=== PATIENT | female | born 1980 | race Caucasian/White ===

== ENCOUNTER 2017-07-06 23:37 | Emergency (ER) | payer OTHER ==
[~2017-07-06] VITALS: Ht 165.1 cm; Wt 72.6 kg
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
--- NOTE | 2017-07-06 23:51 | NUR ---
seizure precautions in place.
[2017-07-06] MEDS ORDERED: ONDANSETRON 4 MG TAB.RAPDIS ONE (23:53)
[2017-07-07] MEDS ORDERED: ONDANSETRON 4 MG TAB.RAPDIS SL ONE
--- NOTE | 2017-07-07 | NUR ---
Patient is resting comfortably in bed with eyes closed. Easily arousable to name. VSS. No discomfort noted in pt.
--- NOTE | 2017-07-07 00:12 | NUR ---
PT TO CT
--- NOTE | 2017-07-07 00:22 | NUR ---
PT BACK FROM CT
[2017-07-07] MEDS ORDERED: ONDANSETRON HCL/PF 4 MG/2 ML VIAL ONE (00:58)
[2017-07-07] MEDS ORDERED: CT SWABBABLE VALVE TRANS SET 1 EA INFUS.SET MC ONE (00:59)
[2017-07-07] MEDS ORDERED: IOHEXOL-350 100 ML VIAL IV ONE ×2 (00:59→01:26)
[2017-07-07] MEDS ORDERED: IV NS 0.9% 250 ML IV ONE (00:59)
[2017-07-07] MEDS ORDERED: ONDANSETRON HCL/PF 4 MG/2 ML VIAL IV ONE (01:00)
[2017-07-07] MEDS ORDERED: TDAP [DIPH/PERTUSSIS/TET] 0.5 ML VIAL IM ONE ×2 (01:00→02:11)
--- NOTE | 2017-07-07 01:12 | NUR ---
PT TO CT FOR CTA
--- NOTE | 2017-07-07 01:13 | NUR ---
Patient is resting comfortably in bed with eyes closed. Easily arousable to name. VSS. No discomfort noted in pt. Seizure precautions in place.
[2017-07-07 01:27] LABS: BASOPHILS % (AUTO) 0.2 % (0.0-2.0); EOSINOPHILS % (AUTO) 0.8 % (0.0-6.0); HEMATOCRIT 39 % (33-45); HEMOGLOBIN 13.2 g/dL (11.5-14.8); LYMPHOCYTES # (AUTO) 2.2 /CMM (0.8-4.8); LYMPHOCYTES % (AUTO) 11.9 % (20.0-44.0); MEAN CORPUSCULAR HGB CONC 34 g/dl (31.0-36.0); MEAN CORPUSCULAR VOLUME 91 fL (82-100); MONOCYTES # (AUTO) 0.8 /CMM (0.1-1.30); MONOCYTES % (AUTO) 4.4 % (2.0-12.0); NEUTROPHILS # (AUTO) 15.3 /CMM (1.8-8.9); NEUTROPHILS % (AUTO) 82.7 % (43.0-81.0); PLATELET COUNT (AUTO) 313 /CMM (150-450); RDW COEFFICIENT OF VARIATION 13.4 (11.5-15.0); RED BLOOD CELL COUNT(AUTO) 4.27 MIL/uL (4.0-5.2); WHITE BLOOD COUNT (AUTO) 18.5 K/uL (4.3-11.0)
[2017-07-07] MEDS ORDERED: IV NS 0.9% 1,000 ML BAG IV ONE (01:30)
[2017-07-07 01:34] LABS: INR 0.94 (0.87-1.13)
--- NOTE | 2017-07-07 01:37 | NUR ---
DR NOGUEIRA SPEAKING WITH DR ROMO FROM [facility]. AWAITING CALL BACK FROM [facility].
[2017-07-07 01:38] LABS: CREATININE 0.7 mg/dL (0.6-1.3); POTASSIUM 3.9 mmol/L (3.5-5.1)
[2017-07-07 01:41] VITALS: BP 108/70
[2017-07-07 01:44] LABS: ALBUMIN 4.1 g/dL (3.4-5.0); BILIRUBIN,DIRECT 0.1 mg/dL (0.0-0.2); BILIRUBIN,TOTAL 0.3 mg/dL (0.2-1.0); TOTAL PROTEIN, SERUM 7.8 g/dL (6.4-8.2)
--- NOTE | 2017-07-07 02:15 | NUR ---
REPORT GIVEN TO INVENTORY [employer]ANNER CREW FOR [facility]. PT BEING TRANSFERRED TO [facility] FOR HIGHER LEVEL OF CARE.
--- NOTE | 2017-07-07 02:20 | NUR ---
LATE ENTRY; PT TRANSFERED TO [facility] VIA [facility]ICS WITH IV FLUID NORMAL SALINE INFUSING ACCOMPANIED BY RN FERMIN NOLAN.
== END 2017-07-07 02:20 | disposition short-term general hospital (02) ==
LOC: ER 23:39 → EDBD 23:39 → ER 07-07 02:20
DX: S06.5X9A Traumatic subdural hemorrhage with loss of consciousness of unspecified duration, initial encounter (principal); S02.119A Unspecified fracture of occiput, initial encounter for closed fracture; S02.19XA Other fracture of base of skull, initial encounter for closed fracture; G93.89 Other specified disorders of brain; Z88.0 Allergy status to penicillin; V43.62XA Car passenger injured in collision with other type car in traffic accident, initial encounter; Y93.89 Activity, other specified; Y92.89 Other specified places as the place of occurrence of the external cause; Y99.8 Other external cause status
CPT/HCPCS: 36415; 70450; 70486; 70496; 70498; 71275; 72125; 80048; 80076; 85025; 85730; 86850; 90471; 90715; 93005; 96374; 99291; 99292; A4606; J2405; J7030; J7050; Q0162; Q9967 ×2; Z7610